=== PATIENT | male | born 1980 | race Caucasian/White ===

== ENCOUNTER 2016-07-25 07:01 | Emergency (ER) | payer OTHER ==
[~2016-07-25 07:01] MED LIST: PROZ40CA PO
[2016-07-25] MEDS ORDERED: METOCLOPRAMIDE INJ 10MG/2ML VIAL (J2765) As Ordered ONE (07:59)
[2016-07-25] MEDS ORDERED: diphenhydrAMINE INJ 50MG/ML VIAL (J1200) As Ordered ONE (08:00)
[2016-07-25 08:06] LABS: BASO # 0.2 K/mm3 (0.0-0.2); BASO % 1.4 % (0.0-1.0); EOS # 0.4 K/mm3 (0.0-0.50); LARGE UNSTAINED CELL # 0.2 K/mm3 (0.0-0.4); LARGE UNSTAINED CELL % 1.3 % (0.0-4.0); LYMPH % 24.8 % (24.0-44.0); MEAN CORPUSCULAR HEMOGLOBIN 30.8 pg (27.0-33.0); MEAN CORPUSCULAR HGB CONC 33.7 g/dl (32.0-36.5); MEAN CORPUSCULAR VOLUME 91.4 fl (80.0-96.0); MONO # 0.7 K/mm3 (0.0-0.8); MONO % 5.6 % (0.0-5.0); NEUTROPHILS # 7.5 K/mm3 (1.8-7.7); PLATELET COUNT, AUTOMATED 212 k/mm3 (150-450); RED CELL DISTRIBUTION WIDTH 13.8 % (11.5-14.5); WHITE BLOOD COUNT 11.7 K/mm3 (4.0-10.0)
[2016-07-25 08:16] LABS: ALBUMIN 4.1 GM/DL (3.2-5.2); ALBUMIN/GLOBULIN RATIO 0.95 (1.00-1.93); ALKALINE PHOSPHATASE 122 U/L (45-117); ALT/SGPT 253 U/L (12-78); ANION GAP 10 MEQ/L (8-16); AST/SGOT 123 U/L (15-37); BILIRUBIN,TOTAL 0.4 MG/DL (0.2-1.0); BLOOD UREA NITROGEN 16 MG/DL (7-18); CALCIUM LEVEL 8.9 MG/DL (8.5-10.1); CARBON DIOXIDE LEVEL 22 MEQ/L (21-32); CHLORIDE LEVEL 107 MEQ/L (98-107); CREATININE FOR GFR 1.16 MG/DL (0.70-1.30); GLOMERULAR FILTRATION RATE > 60.0 (>60); GLUCOSE, FASTING 99 MG/DL (70-105); POTASSIUM SERUM 4.1 MEQ/L (3.5-5.1); SODIUM LEVEL 139 MEQ/L (136-145); TOTAL PROTEIN 8.4 GM/DL (6.4-8.2)
--- NOTE | 2016-07-25 08:16 | ECGEPIP ---
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
--- NOTE | 2016-07-25 09:59 | EDDOCDS ---
Physician Documentation [facility] Name: Marcus Arce Age: 36 yrs Sex: Male : 1980 Arrival Date: 07/25/2016 Time: 07:01 Bed 9 Private MD: Isaac John PA-C Disposition: 07/25/16 09:28 Discharged to Home/Self Care. Impression: Acute frontal sinusitis, Elevated blood-pressure reading, without diagnosis of hypertension, Other right bundle-branch block. - Condition is Stable. - Discharge Instructions: Hypertension, Sinus Headache, How to Take Your Blood Pressure, Brxr-gz-Ampl. - Prescriptions for azelastine 137 mcg (0.1 %) Nasal aerosol,spray - spray 2 spray by INTRANASAL route 2 times per day; 1 bottle. - Medication Reconciliation, Local Pharmacy Hours form. - Follow up: True Morales; When: Call to arrange an appointment; Reason: Further diagnostic work-up, Recheck today's complaints, Continuance of care. Follow up: Isaac John; When: 2 - 3 days; Reason: Further diagnostic work-up, Recheck today's complaints, Continuance of care. - Problem is new. - Symptoms have improved. Historical: - Allergies: no known allergies; - Home Meds: 1. Sertraline 150 mg nightly - PMHx: Anxiety; Depression; GERD; - PSHx: Knee surgery- Left; - Social history: Smoking status: Patient states was never smoker of tobacco. No barriers to communication noted, The patient speaks fluent Sami, Speaks appropriately for age. - Family history: Not pertinent. - : The pt / caregiver states he / she is not on anticoagulants. Home medication list is obtained from the patient. - Exposure Risk Screening:: None identified. Vital Signs: 07/25 07:07 BP 169 / 111; Pulse 64; Resp 16; Temp 97.3(T); Pulse Ox 95% on R/A; Weight 141.52 kg / bcj 312 lbs; Height 6 ft. 2 in. (187.96 cm); Pain 6/10; 07:35 BP 202 / 160 LA Sitting (man/lg); btw 08:01 Pulse 54 MON; Pulse Ox 94% ; jc4 08:02 BP 148 / 82 (auto/); jc4 08:17 BP 150 / 81 (auto/); jc4 08:17 Pulse 68 MON; Pulse Ox 94% ; jc4 08:31 Pulse 76 MON; Pulse Ox 97% ; jc4 08:32 BP 148 / 78 (auto/); jc4 08:41 Pain 4/10; jc4 09:50 BP 161 / 78; Pulse 58; Resp 20; Temp 97.3(O); Pulse Ox 98% on R/A; Pain 4/10; jc4 07:07 Body Mass Index 40.06 (141.52 kg, 187.96 cm) bcj 07:35 Blood pressure reading taken by me. btw MDM: 07:12 Recheck B/P ordered. btw 07:34 IV Saline Lock ordered. btw 07:34 Assembling Fabricator/Pulse Ox/q 30 min VS ordered. btw 07:34 Metoclopramide 20 mg IV at 80 mg/hr once over 15 mins ordered. btw 07:34 diphenhydrAMINE 50 mg IVP once ordered. btw 07:36 Chest, 2 View (pa\E\lat) Ordered. EDMS 07:36 CBC with Diff Ordered. EDMS 07:36 Complete Comphrensive Metabolic Ordered. EDMS 07:36 Cardiac Marker Panel Ordered. EDMS 07:36 Troponin Ordered. EDMS 07:43 ECG WITH READING ER PHYS+CARDIAG ordered. EDMS 08:23 Financial registration complete. lg 08:49 CBC with Diff Reviewed. btw 08:49 Complete Comphrensive Metabolic Reviewed. btw 08:49 Cardiac Marker Panel Reviewed. btw 08:49 EKG-ADULT Reviewed. btw Administered Medications: 08:08 Drug: diphenhydrAMINE 50 mg [diphenhydramine 50 mg/mL injection solution (1 mL)] Route: jc4 IVP; Site: right hand; 09:59 Follow up: Response: Pain is decreased jc4 08:14 Drug: Metoclopramide 20 mg [metoclopramide 5 mg/mL injection solution] Route: IV; Rate: jc4 80 mg/hr; Infused Over: 15 mins; Site: right hand; 08:41 Follow up: Pain 4/10 Adult; IV Status: Completed infusion jc4 Signatures: Dispatcher [employer] EDMS Eleuterio Cadena, RN RN bcImelda Polanco, Manny Reg lg WolfendJerry sampson PA PA btw Castle, Jennifer, RN RN jc4 Porsha Ritter RN RN mk4 MTDD
--- NOTE | 2016-07-25 09:59 | EDDOCDS ---
Nurse's Notes [facility] Name: Marcus Arce Age: 36 yrs Sex: Male : 1980 Arrival Date: 07/25/2016 Time: 07:01 Bed 9 Private MD: Isaac John PA-C Diagnosis: Acute frontal sinusitis;Elevated blood-pressure reading, without diagnosis of hypertension;Other right bundle-branch block Presentation: 07/25 07:04 Presenting complaint: Patient states: woke up this am with stabbing headache/right bcj sided facial and ear pain. + dizziness. had cold sx's last week. denies recent fall / head injury. This patient has no additional risk factors. Adult Sepsis Screening: The patient does not have new or worsening altered mentation. Patient's respiratory rate is less than 22. Systolic blood pressure is greater than 100. Patient has a qSOFA score of 0- Negative Sepsis Screen. Suicide/Homicide risk assessment- the patient denies having any suicidal and/or homicidal ideations and does not present with any other emotional, behavioral or mental health complaints. 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 Transition of care: patient was not received from another setting of care. 07:04 Acuity: BRAYAN Level 4 bcj 07:04 Method Of Arrival: Walkin/Carried/Asstd bcj Triage Assessment: 07:07 Headache History: This patient does not have a history of previous headaches. General: bcj Appears in no apparent distress, comfortable, Behavior is cooperative. Pain: Location: head Pain currently is 6 out of 10 on a pain scale. Pain began 4 hours ago Also complains of no other associated symptoms. HIV screening NA for this visit Offered previously. Neurological: Level of Consciousness is awake, alert. Historical: - Allergies: no known allergies; - Home Meds: 1. Sertraline 150 mg nightly - PMHx: Anxiety; Depression; GERD; - PSHx: Knee surgery- Left; - Social history: Smoking status: Patient states was never smoker of tobacco. No barriers to communication noted, The patient speaks fluent Liberian, Speaks appropriately for age. - Family history: Not pertinent. - : The pt / caregiver states he / she is not on anticoagulants. Home medication list is obtained from the patient. - Exposure Risk Screening:: None identified. Screenin:54 Screening information is obtained from the patient. Fall risk: No risks identified. mk4 Assistance ADL's: requires no assistance with activities of daily living. Abuse/DV Screen: The patient / caregiver reports he/she is: not in a situation that causes fear, pain or injury. Nutritional screening: No deficits noted. 08:09 home support is adequate. jc4 09:50 Advance Directives: There is no active DNR order. jc4 Assessment: 07:54 General: Appears in no apparent distress, pt transferred to room 9. mk4 08:09 General: Appears in no apparent distress, Behavior is cooperative, pleasant. Pain: jc4 Location: top of head, right ear, right anglican and right jaw Pain currently is 6 out of 10 on a pain scale. Neurological: Level of Consciousness is awake, alert, Oriented to person, place, time. Neurological: Reports photophobia. Cardiovascular: Rhythm is sinus bradycardia No ectopy. Respiratory: Airway is patent Respiratory effort is even, unlabored, Respiratory pattern is regular, symmetrical. GI: Denies nausea. Derm: Skin is pink, warm & dry. 08:41 General: Pt resting on stretcher. States that pain is presently "4/10" at this time. jc4 Color pink, skin warm and dry. Respirations easy and full. Appears comfortable. Denies nausea. Saline lock in place. Call rdz in reach. Lights dimmed for patient comfort. 09:58 General: Appears in no apparent distress, Behavior is cooperative, pleasant. Pain: Pain jc4 currently is 4 out of 10 on a pain scale. Neurological: Level of Consciousness is awake, alert, Oriented to person, place, time. Respiratory: Airway is patent Respiratory effort is even, unlabored, Respiratory pattern is regular, symmetrical. Derm: Skin is pink, warm & dry. Vital Signs: 07:07 BP 169 / 111; Pulse 64; Resp 16; Temp 97.3(T); Pulse Ox 95% on R/A; Weight 141.52 kg; bcj Height 6 ft. 2 in. (187.96 cm); Pain 6/10; 07:35 BP 202 / 160 LA Sitting (man/lg); btw 08:01 Pulse 54 MON; Pulse Ox 94% ; jc4 08:02 BP 148 / 82 (auto/); jc4 08:17 BP 150 / 81 (auto/); jc4 08:17 Pulse 68 MON; Pulse Ox 94% ; jc4 08:31 Pulse 76 MON; Pulse Ox 97% ; jc4 08:32 BP 148 / 78 (auto/); jc4 08:41 Pain 4/10; jc4 09:50 BP 161 / 78; Pulse 58; Resp 20; Temp 97.3(O); Pulse Ox 98% on R/A; Pain 4/10; jc4 07:07 Body Mass Index 40.06 (141.52 kg, 187.96 cm) j 07:35 Blood pressure reading taken by me. [facility] Vitals: 07:07 Log In Time: July 25, 2016 at 07:03. [facility] ED Course: 07:02 Patient visited by Sadia Roberson. lja 07:02 Isaac John is Private Physician. lja 07:02 Patient moved to Waiting lja 07:06 Triage Initiated bcj 07:10 Patient visited by Eleuterio Cadena RN. bcj 07:10 Patient moved to I2 / M2 bcj 07:33 Susu Sandoval PA is PHCP. btw 07:33 Sarah Triplett MD is Attending Physician. btw 07:33 Patient visited by Susu Sandoval PA. btw 07:42 Hamida Mcmillan RN is Primary Nurse. mk4 07:42 Patient moved to 9 mk4 07:53 Troponin Sent. mk4 07:53 Cardiac Marker Panel Sent. mk4 07:53 Complete Comphrensive Metabolic Sent. mk4 07:53 CBC with Diff Sent. mk4 07:53 EKG done. (by ED staff). Reviewed by Susu GUZMÁN. dem1 07:54 Patient visited by Rachel Kunz PCA. ct3 07:54 Patient has correct armband on for positive identification. Placed in gown. Bed in low ct3 position. Call light in reach. Side rails up X2. fbi profiler on. Pulse ox on. NIBP on. 07:54 Inserted saline lock: 20 gauge in right hand and blood collected. mk4 08:09 The patient / caregiver is instructed regarding the plan of care and ED course. jc4 08:36 EKG-ADULT Returned. EDMS 08:41 Patient visited by Hamida Mcmillan RN. jc4 09:27 True Morales is Referral Physician. btw 09:27 Isaac John is Referral Physician. btw 09:49 Discontinued lock intact, bleeding controlled, pressure dressing applied, No jc4 redness/swelling at site. No procedures done that require assistance. Administered Medications: 08:08 Drug: diphenhydrAMINE 50 mg [diphenhydramine 50 mg/mL injection solution (1 mL)] Route: jc4 IVP; Site: right hand; 09:59 Follow up: Response: Pain is decreased jc4 08:14 Drug: Metoclopramide 20 mg [metoclopramide 5 mg/mL injection solution] Route: IV; Rate: jc4 80 mg/hr; Infused Over: 15 mins; Site: right hand; 08:41 Follow up: Pain /10 Adult; IV Status: Completed infusion jc4 Order Results: Lab Order: CBC with Diff; SPEC'M 07/25/16 07:52 Test: WHITE BLOOD COUNT; Value: 11.7; Range: 4.0-10.0; Abnormal: Above high normal; Units: K/mm3; Status: F Test: RED BLOOD COUNT; Value: 5.87; Range: 4.30-6.10; Units: M/mm3; Status: F Test: HEMOGLOBIN; Value: 18.1; Range: 14.0-18.0; Abnormal: Above high normal; Units: g/dl; Status: F Test: HEMATOCRIT; Value: 53.7; Range: 42.0-52.0; Abnormal: Above high normal; Units: %; Status: F Test: MEAN CORPUSCULAR VOLUME; Value: 91.4; Range: 80.0-96.0; Units: fl; Status: F Test: MEAN CORPUSCULAR HEMOGLOBIN; Value: 30.8; Range: 27.0-33.0; Units: pg; Status: F Test: MEAN CORPUSCULAR HGB CONC; Value: 33.7; Range: 32.0-36.5; Units: g/dl; Status: F Test: RED CELL DISTRIBUTION WIDTH; Value: 13.8; Range: 11.5-14.5; Units: %; Status: F Test: PLATELET COUNT, AUTOMATED; Value: 212; Range: 150-450; Units: k/mm3; Status: F Test: NEUTROPHILS %; Value: 64.0; Range: 36.0-66.0; Units: %; Status: F Test: LYMPH %; Value: 24.8; Range: 24.0-44.0; Units: %; Status: F Test: MONO %; Value: 5.6; Range: 0.0-5.0; Abnormal: Above high normal; Units: %; Status: F Test: EOS %; Value: 3.0; Range: 0.0-3.0; Units: %; Status: F Test: BASO %; Value: 1.4; Range: 0.0-1.0; Abnormal: Above high normal; Units: %; Status: F Test: LARGE UNSTAINED CELL %; Value: 1.3; Range: 0.0-4.0; Units: %; Status: F Test: NEUTROPHILS #; Value: 7.5; Range: 1.8-7.7; Units: K/mm3; Status: F Test: LYMPH #; Value: 3.0; Range: 1.5-4.5; Units: K/mm3; Status: F Test: MONO #; Value: 0.7; Range: 0.0-0.8; Units: K/mm3; Status: F Test: EOS #; Value: 0.4; Range: 0.0-0.50; Units: K/mm3; Status: F Test: BASO #; Value: 0.2; Range: 0.0-0.2; Units: K/mm3; Status: F Test: LARGE UNSTAINED CELL #; Value: 0.2; Range: 0.0-0.4; Units: K/mm3; Status: F Lab Order: Complete Comphrensive Metabolic; SPEC'M 07/25/16 07:51 Test: GLUCOSE, FASTING; Value: 99; Range: 70-105; Units: MG/DL; Status: F Test: BLOOD UREA NITROGEN; Value: 16; Range: 7-18; Units: MG/DL; Status: F Test: CREATININE FOR GFR; Value: 1.16; Range: 0.70-1.30; Units: MG/DL; Status: F Test: GLOMERULAR FILTRATION RATE; Value: > 60.0; Range: >60; Status: F Test: SODIUM LEVEL; Value: 139; Range: 136-145; Units: MEQ/L; Status: F Test: POTASSIUM SERUM; Value: 4.1; Range: 3.5-5.1; Units: MEQ/L; Status: F Test: CHLORIDE LEVEL; Value: 107; Range: 98-107; Units: MEQ/L; Status: F Test: CARBON DIOXIDE LEVEL; Value: 22; Range: 21-32; Units: MEQ/L; Status: F Test: ANION GAP; Value: 10; Range: 8-16; Units: MEQ/L; Status: F Test: CALCIUM LEVEL; Value: 8.9; Range: 8.5-10.1; Units: MG/DL; Status: F Test: AST/SGOT; Value: 123; Range: 15-37; Abnormal: Above high normal; Units: U/L; Status: F Test: ALT/SGPT; Value: 253; Range: 12-78; Abnormal: Above high normal; Units: U/L; Status: F Test: ALKALINE PHOSPHATASE; Value: 122; Range: 45-117; Abnormal: Above high normal; Units: U/L; Status: F Test: BILIRUBIN,TOTAL; Value: 0.4; Range: 0.2-1.0; Units: MG/DL; Status: F Test: TOTAL PROTEIN; Value: 8.4; Range: 6.4-8.2; Abnormal: Above high normal; Units: GM/DL; Status: F Test: ALBUMIN; Value: 4.1; Range: 3.2-5.2; Units: GM/DL; Status: F Test: ALBUMIN/GLOBULIN RATIO; Value: 0.95; Range: 1.00-1.93; Abnormal: Below low normal; Status: F Test Note: ; Units are mL/min/1.73 m2 Chronic Kidney Disease Staging per NKF: Stage I & II GFR >=60 Normal to Mildly Decreased Stage III GFR 30-59 Moderately Decreased Stage IV GFR 15-29 Severely Decreased Stage V GFR <15 Very Little GFR Left ESRD GFR <15 on CLIMATE CHANGE RISK ASSESSOR Lab Order: Cardiac Marker Panel; SPEC'M 07/25/16 07:51 Test: CPK CREATINE PHOSPHOKINASE; Value: 335; Range: 39-308; Abnormal: Above high normal; Units: U/L; Status: F Test: CK-MB VALUE MASS; Value: 2.1; Range: 0.0-3.6; Units: NG/ML; Status: F Test: MB/CK RELATIVE INDEX; Value: 0.62; Range: < OR =4; Status: F Test: TROPONIN I; Value: 0.05; Range: < 0.10; Units: NG/ML; Status: F Test Note: ; DIAGNOSIS CRITERIA MMB ng/ml Relative Index (RI) NON-AMI < or = 5 N/A [place] ZONE > 5 < or = 4 AMI > 5 > 4 Radiology Order: EKG-ADULT Test: EKG-ADULT REASON FOR EXAMINATION: hypertension; Stationary ECG Study; [facility] - ED; ; Test Date: 2016-07-25; Pat Name: MARCUS ARCE Department:; Room: -; Gender: M 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 btw 09:50 Discharge Assessment: Patient awake, alert and oriented x 3. No cognitive and/or jc4 functional deficits noted. Patient verbalized understanding of disposition instructions. patient administered narcotics - no. The following High Risk Discharge criteria are identified: None. Discharged to home ambulatory, with 's grandmother. Condition: stable. Discharge instructions given to patient, Instructed on discharge instructions, follow up and referral plans. medication usage, Demonstrated understanding of instructions, medications, Pt was receptive of discharge instructions/ teaching. No special radiology studies were completed. Property :Personal belongings accompany Pt. 09:59 Patient left the ED. jc4 Signatures: Dispatcher [employer] EDMS Eleuterio Cadena, RN Susu Herr PA PA btw Hamida Mcmillan, RN RN jc4 Rachel Kunz PCA BRIDGE TOLL COLLECTOR ct3 Violeta Cook dem1 Porsha Ritter, RN RN mk4 Arel, Sadia rocha Corrections: (The following items were deleted from the chart) 07:57 07:53 EKG done. (by ED staff). Reviewed by Sarah Triplett MD ct3 dem1 MTDD
--- NOTE | 2016-07-25 15:04 | REP ---
CHEST, TWO VIEWS: COMPARISON: 11/11/2008. There is no evidence of acute infiltrate. No pleural effusion is seen. The heart is normal in size. The mediastinal silhouette is unremarkable. The visualized osseous structures are intact. IMPRESSION: No acute pulmonary disease. Unreviewed
--- NOTE | 2016-07-27 11:00 | EDDOCDS ---
Nurse's Notes [facility] Name: Marcus Arce Age: 36 yrs Sex: Male : 1980 Arrival Date: 07/25/2016 Time: 07:01 Bed 9 Private MD: Isaac John PA-C Diagnosis: Acute frontal sinusitis;Elevated blood-pressure reading, without diagnosis of hypertension;Other right bundle-branch block Presentation: 07/25 07:04 Presenting complaint: Patient states: woke up this am with stabbing headache/right bcj sided facial and ear pain. + dizziness. had cold sx's last week. denies recent fall / head injury. This patient has no additional risk factors. Adult Sepsis Screening: The patient does not have new or worsening altered mentation. Patient's respiratory rate is less than 22. Systolic blood pressure is greater than 100. Patient has a qSOFA score of 0- Negative Sepsis Screen. Suicide/Homicide risk assessment- the patient denies having any suicidal and/or homicidal ideations and does not present with any other emotional, behavioral or mental health complaints. 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 Transition of care: patient was not received from another setting of care. 07:04 Acuity: BRAYAN Level 4 bcj 07:04 Method Of Arrival: Walkin/Carried/Asstd bcj Triage Assessment: 07:07 Headache History: This patient does not have a history of previous headaches. General: bcj Appears in no apparent distress, comfortable, Behavior is cooperative. Pain: Location: head Pain currently is 6 out of 10 on a pain scale. Pain began 4 hours ago Also complains of no other associated symptoms. HIV screening NA for this visit Offered previously. Neurological: Level of Consciousness is awake, alert. Historical: - Allergies: no known allergies; - Home Meds: 1. Sertraline 150 mg nightly - PMHx: Anxiety; Depression; GERD; - PSHx: Knee surgery- Left; - Social history: Smoking status: Patient states was never smoker of tobacco. No barriers to communication noted, The patient speaks fluent Danish, Speaks appropriately for age. - Family history: Not pertinent. - : The pt / caregiver states he / she is not on anticoagulants. Home medication list is obtained from the patient. - Exposure Risk Screening:: None identified. Screenin:54 Screening information is obtained from the patient. Fall risk: No risks identified. mk4 Assistance ADL's: requires no assistance with activities of daily living. Abuse/DV Screen: The patient / caregiver reports he/she is: not in a situation that causes fear, pain or injury. Nutritional screening: No deficits noted. 08:09 home support is adequate. jc4 09:50 Advance Directives: There is no active DNR order. jc4 Assessment: 07:54 General: Appears in no apparent distress, pt transferred to room 9. mk4 08:09 General: Appears in no apparent distress, Behavior is cooperative, pleasant. Pain: jc4 Location: top of head, right ear, right buddhism and right jaw Pain currently is 6 out of 10 on a pain scale. Neurological: Level of Consciousness is awake, alert, Oriented to person, place, time. Neurological: Reports photophobia. Cardiovascular: Rhythm is sinus bradycardia No ectopy. Respiratory: Airway is patent Respiratory effort is even, unlabored, Respiratory pattern is regular, symmetrical. GI: Denies nausea. Derm: Skin is pink, warm & dry. 08:41 General: Pt resting on stretcher. States that pain is presently "4/10" at this time. jc4 Color pink, skin warm and dry. Respirations easy and full. Appears comfortable. Denies nausea. Saline lock in place. Call rdz in reach. Lights dimmed for patient comfort. 09:58 General: Appears in no apparent distress, Behavior is cooperative, pleasant. Pain: Pain jc4 currently is 4 out of 10 on a pain scale. Neurological: Level of Consciousness is awake, alert, Oriented to person, place, time. Respiratory: Airway is patent Respiratory effort is even, unlabored, Respiratory pattern is regular, symmetrical. Derm: Skin is pink, warm & dry. Vital Signs: 07:07 BP 169 / 111; Pulse 64; Resp 16; Temp 97.3(T); Pulse Ox 95% on R/A; Weight 141.52 kg; bcj Height 6 ft. 2 in. (187.96 cm); Pain 6/10; 07:35 BP 202 / 160 LA Sitting (man/lg); btw 08:01 Pulse 54 MON; Pulse Ox 94% ; jc4 08:02 BP 148 / 82 (auto/); jc4 08:17 BP 150 / 81 (auto/); jc4 08:17 Pulse 68 MON; Pulse Ox 94% ; jc4 08:31 Pulse 76 MON; Pulse Ox 97% ; jc4 08:32 BP 148 / 78 (auto/); jc4 08:41 Pain 4/10; jc4 09:50 BP 161 / 78; Pulse 58; Resp 20; Temp 97.3(O); Pulse Ox 98% on R/A; Pain 4/10; jc4 07:07 Body Mass Index 40.06 (141.52 kg, 187.96 cm) j 07:35 Blood pressure reading taken by me. [facility] Vitals: 07:07 Log In Time: July 25, 2016 at 07:03. [facility] ED Course: 07:02 Patient visited by Sadia Roberson. lja 07:02 Isaac John is Private Physician. lja 07:02 Patient moved to Waiting lja 07:06 Triage Initiated bcj 07:10 Patient visited by Eleuterio Cadena RN. bcj 07:10 Patient moved to I2 / M2 bcj 07:33 Susu Sanodval PA is PHCP. btw 07:33 Sarah Triplett MD is Attending Physician. btw 07:33 Patient visited by Susu Sandoval PA. btw 07:42 Hamida Mcmillan RN is Primary Nurse. mk4 07:42 Patient moved to 9 mk4 07:53 Troponin Sent. mk4 07:53 Cardiac Marker Panel Sent. mk4 07:53 Complete Comphrensive Metabolic Sent. mk4 07:53 CBC with Diff Sent. mk4 07:53 EKG done. (by ED staff). Reviewed by Susu GUZMÁN. dem1 07:54 Patient visited by Rachel Kunz PCA. ct3 07:54 Patient has correct armband on for positive identification. Placed in gown. Bed in low ct3 position. Call light in reach. Side rails up X2. supervisor water softener service on. Pulse ox on. NIBP on. 07:54 Inserted saline lock: 20 gauge in right hand and blood collected. mk4 08:09 The patient / caregiver is instructed regarding the plan of care and ED course. jc4 08:36 EKG-ADULT Returned. EDMS 08:41 Patient visited by Hamida Mcmillan RN. jc4 09:27 True Morales is Referral Physician. btw 09:27 Isaac John is Referral Physician. btw 09:49 Discontinued lock intact, bleeding controlled, pressure dressing applied, No jc4 redness/swelling at site. No procedures done that require assistance. 10:02 [facility] Payment Agreement was scanned into [employer] and attached to record. lg 12:37 T-Sheet-- Draft Copy was scanned into [employer] and attached to record. gb 12:38 ECG/EKG was scanned into [employer] and attached to record. gb 15:08 Chest, 2 View (pa\\E\\lat) Returned. EDMS Administered Medications: 08:08 Drug: diphenhydrAMINE 50 mg [diphenhydramine 50 mg/mL injection solution (1 mL)] Route: jc4 IVP; Site: right hand; 09:59 Follow up: Response: Pain is decreased jc4 08:14 Drug: Metoclopramide 20 mg [metoclopramide 5 mg/mL injection solution] Route: IV; Rate: jc4 80 mg/hr; Infused Over: 15 mins; Site: right hand; 08:41 Follow up: Pain 4/10 Adult; IV Status: Completed infusion jc4 Order Results: Lab Order: CBC with Diff; SPEC'M 07/25/16 07:52 Test: WHITE BLOOD COUNT; Value: 11.7; Range: 4.0-10.0; Abnormal: Above high normal; Units: K/mm3; Status: F Test: RED BLOOD COUNT; Value: 5.87; Range: 4.30-6.10; Units: M/mm3; Status: F Test: HEMOGLOBIN; Value: 18.1; Range: 14.0-18.0; Abnormal: Above high normal; Units: g/dl; Status: F Test: HEMATOCRIT; Value: 53.7; Range: 42.0-52.0; Abnormal: Above high normal; Units: %; Status: F Test: MEAN CORPUSCULAR VOLUME; Value: 91.4; Range: 80.0-96.0; Units: fl; Status: F Test: MEAN CORPUSCULAR HEMOGLOBIN; Value: 30.8; Range: 27.0-33.0; Units: pg; Status: F Test: MEAN CORPUSCULAR HGB CONC; Value: 33.7; Range: 32.0-36.5; Units: g/dl; Status: F Test: RED CELL DISTRIBUTION WIDTH; Value: 13.8; Range: 11.5-14.5; Units: %; Status: F Test: PLATELET COUNT, AUTOMATED; Value: 212; Range: 150-450; Units: k/mm3; Status: F Test: NEUTROPHILS %; Value: 64.0; Range: 36.0-66.0; Units: %; Status: F Test: LYMPH %; Value: 24.8; Range: 24.0-44.0; Units: %; Status: F Test: MONO %; Value: 5.6; Range: 0.0-5.0; Abnormal: Above high normal; Units: %; Status: F Test: EOS %; Value: 3.0; Range: 0.0-3.0; Units: %; Status: F Test: BASO %; Value: 1.4; Range: 0.0-1.0; Abnormal: Above high normal; Units: %; Status: F Test: LARGE UNSTAINED CELL %; Value: 1.3; Range: 0.0-4.0; Units: %; Status: F Test: NEUTROPHILS #; Value: 7.5; Range: 1.8-7.7; Units: K/mm3; Status: F Test: LYMPH #; Value: 3.0; Range: 1.5-4.5; Units: K/mm3; Status: F Test: MONO #; Value: 0.7; Range: 0.0-0.8; Units: K/mm3; Status: F Test: EOS #; Value: 0.4; Range: 0.0-0.50; Units: K/mm3; Status: F Test: BASO #; Value: 0.2; Range: 0.0-0.2; Units: K/mm3; Status: F Test: LARGE UNSTAINED CELL #; Value: 0.2; Range: 0.0-0.4; Units: K/mm3; Status: F Lab Order: Complete Comphrensive Metabolic; SPEC'M 07/25/16 07:51 Test: GLUCOSE, FASTING; Value: 99; Range: 70-105; Units: MG/DL; Status: F Test: BLOOD UREA NITROGEN; Value: 16; Range: 7-18; Units: MG/DL; Status: F Test: CREATININE FOR GFR; Value: 1.16; Range: 0.70-1.30; Units: MG/DL; Status: F Test: GLOMERULAR FILTRATION RATE; Value: > 60.0; Range: >60; Status: F Test: SODIUM LEVEL; Value: 139; Range: 136-145; Units: MEQ/L; Status: F Test: POTASSIUM SERUM; Value: 4.1; Range: 3.5-5.1; Units: MEQ/L; Status: F Test: CHLORIDE LEVEL; Value: 107; Range: 98-107; Units: MEQ/L; Status: F Test: CARBON DIOXIDE LEVEL; Value: 22; Range: 21-32; Units: MEQ/L; Status: F Test: ANION GAP; Value: 10; Range: 8-16; Units: MEQ/L; Status: F Test: CALCIUM LEVEL; Value: 8.9; Range: 8.5-10.1; Units: MG/DL; Status: F Test: AST/SGOT; Value: 123; Range: 15-37; Abnormal: Above high normal; Units: U/L; Status: F Test: ALT/SGPT; Value: 253; Range: 12-78; Abnormal: Above high normal; Units: U/L; Status: F Test: ALKALINE PHOSPHATASE; Value: 122; Range: 45-117; Abnormal: Above high normal; Units: U/L; Status: F Test: BILIRUBIN,TOTAL; Value: 0.4; Range: 0.2-1.0; Units: MG/DL; Status: F Test: TOTAL PROTEIN; Value: 8.4; Range: 6.4-8.2; Abnormal: Above high normal; Units: GM/DL; Status: F Test: ALBUMIN; Value: 4.1; Range: 3.2-5.2; Units: GM/DL; Status: F Test: ALBUMIN/GLOBULIN RATIO; Value: 0.95; Range: 1.00-1.93; Abnormal: Below low normal; Status: F Test Note: ; Units are mL/min/1.73 m2 Chronic Kidney Disease Staging per NKF: Stage I & II GFR >=60 Normal to Mildly Decreased Stage III GFR 30-59 Moderately Decreased Stage IV GFR 15-29 Severely Decreased Stage V GFR <15 Very Little GFR Left ESRD GFR <15 on AMMONIUM NITRATE CRYSTALLIZER Lab Order: Cardiac Marker Panel; SPEC'M 07/25/16 07:51 Test: CPK CREATINE PHOSPHOKINASE; Value: 335; Range: 39-308; Abnormal: Above high normal; Units: U/L; Status: F Test: CK-MB VALUE MASS; Value: 2.1; Range: 0.0-3.6; Units: NG/ML; Status: F Test: MB/CK RELATIVE INDEX; Value: 0.62; Range: < OR =4; Status: F Test: TROPONIN I; Value: 0.05; Range: < 0.10; Units: NG/ML; Status: F Test Note: ; DIAGNOSIS CRITERIA MMB ng/ml Relative Index (RI) NON-AMI < or = 5 N/A [place] > 5 < or = 4 AMI > 5 > 4 Radiology Order: Chest, 2 View (pa\\E\\lat) Test: Chest, 2 View (pa\\E\\lat) REASON FOR EXAMINATION: Cough; CHEST, TWO VIEWS:; ; COMPARISON: 11/11/2008.; ; There is no evidence of acute infiltrate.; ; No pleural effusion is seen.; ; The heart is normal in size.; ; The mediastinal silhouette is unremarkable.; ; The visualized osseous structures are intact.; ; IMPRESSION:; ; No acute pulmonary disease.; ; ; ; ; ; Unreviewed; Radiology Order: EKG-ADULT Test: EKG-ADULT REASON FOR EXAMINATION: hypertension; Stationary ECG Study; [facility] - ED; ; Test Date: 2016-07-25; Pat Name: MARCUS ARCE Department:; Room: -; 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 bt 09:50 Discharge Assessment: Patient awake, alert and oriented x 3. No cognitive and/or jc4 functional deficits noted. Patient verbalized understanding of disposition instructions. patient administered narcotics - no. The following High Risk Discharge criteria are identified: None. Discharged to home ambulatory, with 's grandmother. Condition: stable. Discharge instructions given to patient, Instructed on discharge instructions, follow up and referral plans. medication usage, Demonstrated understanding of instructions, medications, Pt was receptive of discharge instructions/ teaching. No special radiology studies were completed. Property :Personal belongings accompany Pt. 09:59 Patient left the ED. jc4 Signatures: Dispatcher [employer] EDMS Eleuterio Cadena, RN RN Mindy Villagran, Reg Reg gb Imelda Gonzales, Reg Reg lg Susu Sandoval, RAMIREZ PA btw Hamida Mcmillan, RN RN jc4 Rachel Kunz, AUDIOLOGY DIRECTOR AUDIOLOGY DIRECTOR ct3 Violeta Cook dem1 Porsha Ritter, RN RN mk4 Karol, Sadia rocha Corrections: (The following items were deleted from the chart) 07:57 07:53 EKG done. (by ED staff). Reviewed by Sarah Triplett MD ct3 dem1 Chart Complete MTDD
--- NOTE | 2016-07-27 11:00 | EDDOCDS ---
Physician Documentation [facility] Name: Marcus Arce Age: 36 yrs Sex: Male : 1980 Arrival Date: 07/25/2016 Time: 07:01 Bed 9 Private MD: Isaac John PA-C Disposition: 07/25/16 09:28 Discharged to Home/Self Care. Impression: Acute frontal sinusitis, Elevated blood-pressure reading, without diagnosis of hypertension, Other right bundle-branch block. - Condition is Stable. - Discharge Instructions: Hypertension, Sinus Headache, How to Take Your Blood Pressure, [id number]. - Prescriptions for azelastine 137 mcg (0.1 %) Nasal aerosol,spray - spray 2 spray by INTRANASAL route 2 times per day; 1 bottle. - Medication Reconciliation, Local Pharmacy Hours form. - Follow up: True Morales; When: Call to arrange an appointment; Reason: Further diagnostic work-up, Recheck today's complaints, Continuance of care. Follow up: Isaac John; When: 2 - 3 days; Reason: Further diagnostic work-up, Recheck today's complaints, Continuance of care. - Problem is new. - Symptoms have improved. Historical: - Allergies: no known allergies; - Home Meds: 1. Sertraline 150 mg nightly - PMHx: Anxiety; Depression; GERD; - PSHx: Knee surgery- Left; - Social history: Smoking status: Patient states was never smoker of tobacco. No barriers to communication noted, The patient speaks fluent Italian, Speaks appropriately for age. - Family history: Not pertinent. - : The pt / caregiver states he / she is not on anticoagulants. Home medication list is obtained from the patient. - Exposure Risk Screening:: None identified. Vital Signs: 07/25 07:07 BP 169 / 111; Pulse 64; Resp 16; Temp 97.3(T); Pulse Ox 95% on R/A; Weight 141.52 kg / bcj 312 lbs; Height 6 ft. 2 in. (187.96 cm); Pain 6/10; 07:35 BP 202 / 160 LA Sitting (man/lg); btw 08:01 Pulse 54 MON; Pulse Ox 94% ; jc4 08:02 BP 148 / 82 (auto/); jc4 08:17 BP 150 / 81 (auto/); jc4 08:17 Pulse 68 MON; Pulse Ox 94% ; jc4 08:31 Pulse 76 MON; Pulse Ox 97% ; jc4 08:32 BP 148 / 78 (auto/); jc4 08:41 Pain 4/10; jc4 09:50 BP 161 / 78; Pulse 58; Resp 20; Temp 97.3(O); Pulse Ox 98% on R/A; Pain 4/10; jc4 07:07 Body Mass Index 40.06 (141.52 kg, 187.96 cm) bcj 07:35 Blood pressure reading taken by me. btw MDM: 07:12 Recheck B/P ordered. btw 07:34 IV Saline Lock ordered. btw 07:34 Social Media Executive/Pulse Ox/q 30 min VS ordered. btw 07:34 Metoclopramide 20 mg IV at 80 mg/hr once over 15 mins ordered. btw 07:34 diphenhydrAMINE 50 mg IVP once ordered. btw 07:36 Chest, 2 View (pa\E\lat) Ordered. EDMS 07:36 CBC with Diff Ordered. EDMS 07:36 Complete Comphrensive Metabolic Ordered. EDMS 07:36 Cardiac Marker Panel Ordered. EDMS 07:36 Troponin Ordered. EDMS 07:43 ECG WITH READING ER PHYS+CARDIAG ordered. EDMS 08:23 Financial registration complete. lg 08:49 CBC with Diff Reviewed. btw 08:49 Complete Comphrensive Metabolic Reviewed. btw 08:49 Cardiac Marker Panel Reviewed. btw 08:49 EKG-ADULT Reviewed. btw 10:02 [facility] Payment Agreement was scanned into [employer] and attached to record. lg 12:37 T-Sheet-- Draft Copy was scanned into [employer] and attached to record. gb 12:38 ECG/EKG was scanned into [employer] and attached to record. gb Administered Medications: 08:08 Drug: diphenhydrAMINE 50 mg [diphenhydramine 50 mg/mL injection solution (1 mL)] Route: jc4 IVP; Site: right hand; 09:59 Follow up: Response: Pain is decreased jc4 08:14 Drug: Metoclopramide 20 mg [metoclopramide 5 mg/mL injection solution] Route: IV; Rate: jc4 80 mg/hr; Infused Over: 15 mins; Site: right hand; 08:41 Follow up: Pain 10/30 Adult; IV Status: Completed infusion jc4 Signatures: Dispatcher [employer] EDEleuterio Kahn, RN RN Mindy Villagran, Reg Reg gb Imelda Gonzales, Reg Reg lg Jerry Sandoval PA PA btw Castle, Jennifer RN RN jc4 Porsha Ritter RN RN mk4 The chart was reviewed and I authenticate all verbal orders and agree with the evaluation and treatment provided.Attachments: 10:02 [facility] Payment Agreement lg 12:37 T-Sheet-- Draft Copy gb 12:38 ECG/EKG gb Chart Complete MTDD
--- NOTE | 2016-07-27 11:00 | EDDOCDS ---
Physician Documentation [facility] Name: Marcus Arce Age: 36 yrs Sex: Male : 1980 Arrival Date: 07/25/2016 Time: 07:01 Bed 9 Private MD: Isaac John PA-C Disposition: 07/25/16 09:28 Discharged to Home/Self Care. Impression: Acute frontal sinusitis, Elevated blood-pressure reading, without diagnosis of hypertension, Other right bundle-branch block. - Condition is Stable. - Discharge Instructions: Hypertension, Sinus Headache, How to Take Your Blood Pressure, [id number]. - Prescriptions for azelastine 137 mcg (0.1 %) Nasal aerosol,spray - spray 2 spray by INTRANASAL route 2 times per day; 1 bottle. - Medication Reconciliation, Local Pharmacy Hours form. - Follow up: True Morales; When: Call to arrange an appointment; Reason: Further diagnostic work-up, Recheck today's complaints, Continuance of care. Follow up: Isaac John; When: 2 - 3 days; Reason: Further diagnostic work-up, Recheck today's complaints, Continuance of care. - Problem is new. - Symptoms have improved. Historical: - Allergies: no known allergies; - Home Meds: 1. Sertraline 150 mg nightly - PMHx: Anxiety; Depression; GERD; - PSHx: Knee surgery- Left; - Social history: Smoking status: Patient states was never smoker of tobacco. No barriers to communication noted, The patient speaks fluent Ukrainian, Speaks appropriately for age. - Family history: Not pertinent. - : The pt / caregiver states he / she is not on anticoagulants. Home medication list is obtained from the patient. - Exposure Risk Screening:: None identified. Vital Signs: 07/25 07:07 BP 169 / 111; Pulse 64; Resp 16; Temp 97.3(T); Pulse Ox 95% on R/A; Weight 141.52 kg / bcj 312 lbs; Height 6 ft. 2 in. (187.96 cm); Pain 6/10; 07:35 BP 202 / 160 LA Sitting (man/lg); btw 08:01 Pulse 54 MON; Pulse Ox 94% ; jc4 08:02 BP 148 / 82 (auto/); jc4 08:17 BP 150 / 81 (auto/); jc4 08:17 Pulse 68 MON; Pulse Ox 94% ; jc4 08:31 Pulse 76 MON; Pulse Ox 97% ; jc4 08:32 BP 148 / 78 (auto/); jc4 08:41 Pain 4/10; jc4 09:50 BP 161 / 78; Pulse 58; Resp 20; Temp 97.3(O); Pulse Ox 98% on R/A; Pain 4/10; jc4 07:07 Body Mass Index 40.06 (141.52 kg, 187.96 cm) bcj 07:35 Blood pressure reading taken by me. btw MDM: 07:12 Recheck B/P ordered. btw 07:34 IV Saline Lock ordered. btw 07:34 Bee Breeder/Pulse Ox/q 30 min VS ordered. btw 07:34 Metoclopramide 20 mg IV at 80 mg/hr once over 15 mins ordered. btw 07:34 diphenhydrAMINE 50 mg IVP once ordered. btw 07:36 Chest, 2 View (pa\E\lat) Ordered. EDMS 07:36 CBC with Diff Ordered. EDMS 07:36 Complete Comphrensive Metabolic Ordered. EDMS 07:36 Cardiac Marker Panel Ordered. EDMS 07:36 Troponin Ordered. EDMS 07:43 ECG WITH READING ER PHYS+CARDIAG ordered. EDMS 08:23 Financial registration complete. lg 08:49 CBC with Diff Reviewed. btw 08:49 Complete Comphrensive Metabolic Reviewed. btw 08:49 Cardiac Marker Panel Reviewed. btw 08:49 EKG-ADULT Reviewed. btw 10:02 [facility] Payment Agreement was scanned into [employer] and attached to record. lg 12:37 T-Sheet-- Draft Copy was scanned into [employer] and attached to record. gb 12:38 ECG/EKG was scanned into [employer] and attached to record. gb Administered Medications: 08:08 Drug: diphenhydrAMINE 50 mg [diphenhydramine 50 mg/mL injection solution (1 mL)] Route: jc4 IVP; Site: right hand; 09:59 Follow up: Response: Pain is decreased jc4 08:14 Drug: Metoclopramide 20 mg [metoclopramide 5 mg/mL injection solution] Route: IV; Rate: jc4 80 mg/hr; Infused Over: 15 mins; Site: right hand; 08:41 Follow up: Pain 10/30 Adult; IV Status: Completed infusion jc4 Signatures: Dispatcher [employer] EDEleuterio Kahn, RN RN Mindy Villagran, Reg Reg gb Imelda Gonzales, Reg Reg lg Jerry Sandoval PA PA btw Castle, Jennifer RN RN jc4 Porsha Ritter RN RN mk4 The chart was reviewed and I authenticate all verbal orders and agree with the evaluation and treatment provided.Attachments: 10:02 [facility] Payment Agreement lg 12:37 T-Sheet-- Draft Copy gb 12:38 ECG/EKG gb Chart Complete MTDD
== END 2016-07-25 09:59 | disposition home or self-care (01) ==
LOC: M ED 07:01
DX: J01.10 Acute frontal sinusitis, unspecified (principal); I10 Essential (primary) hypertension; F32.9 Major depressive disorder, single episode, unspecified; F41.9 Anxiety disorder, unspecified; K21.9 Gastro-esophageal reflux disease without esophagitis; Z79.899 Other long term (current) drug therapy
CPT/HCPCS: 36415; 71020; 80053; 82550; 82553; 84484; 85025; 93005; 93041; 96365; 96375; 99284; J1200; J2765

== ENCOUNTER 2016-10-04 08:18 | Emergency (ER) | payer OTHER ==
[~2016-10-04] VITALS: Ht 188 cm; Wt 140.6 kg
[2016-10-04] MEDS ORDERED: ZOLO100T PO (08:28)
--- NOTE | 2016-10-04 09:17 | REP ---
REASON: Pain after twisting injury. COMPARISON: None. There is a cancellous screw in the proximal tibia from previous operative procedure. There is no evidence of an acute fracture or destructive osseous lesion. Signed by Sherman Berg DO 10/04/2016 09:24 A
[2016-10-04 10:00] VITALS: BP 127/67
== END 2016-10-04 10:10 | disposition home or self-care (01) ==
LOC: M ED 09:43
DX: M25.562 Pain in left knee (principal)

== ENCOUNTER → 2021-06-23 | Outpatient (REF) | payer OTHER ==
[~2021-06-23] MED LIST changes: +ZOLO100T PO
[2021-06-23 13:56] LABS: HEMATOCRIT 54.3 % (42.0-52.0); HEMOGLOBIN 17.8 g/dl (13.5-17.5); MEAN CORPUSCULAR HEMOGLOBIN 30.4 pg (27.0-33.0); MEAN CORPUSCULAR HGB CONC 32.8 g/dl (32.0-36.5); MEAN CORPUSCULAR VOLUME 92.7 fl (80.0-96.0); PLATELET COUNT, AUTOMATED 198 10^3/uL (150-450); RED BLOOD COUNT 5.86 10^6/uL (4.30-6.10); WHITE BLOOD COUNT 10.3 10^3/uL (4.0-10.0)
[2021-06-23 14:22] LABS: HEMOGLOBIN A1c 5.3 %
[2021-06-23 14:36] LABS: ALBUMIN 4.3 GM/DL (3.2-5.2); ALT/SGPT 81 U/L (12-78); BILIRUBIN,TOTAL 0.5 MG/DL (0.2-1.0); BLOOD UREA NITROGEN 13 MG/DL (7-18); CALCIUM LEVEL 8.9 MG/DL (8.5-10.1); CARBON DIOXIDE LEVEL 26 MEQ/L (21-32); CHLORIDE LEVEL 104 MEQ/L (98-107); CHOLESTEROL LEVEL 158 MG/DL (<200); CREATININE FOR GFR 1.09 MG/DL (0.70-1.30); GLOMERULAR FILTRATION RATE > 60.0 (>60); GLUCOSE, FASTING 82 MG/DL (70-100); HDL CHOLESTEROL 37 MG/DL (>40); LDL CHOLESTEROL 100 MG/DL (<100); NON-HDL-C 121 MG/DL; POTASSIUM SERUM 4.5 MEQ/L (3.5-5.1); SODIUM LEVEL 138 MEQ/L (136-145); THYROID STIMULATING HORMONE 0.745 uIU/ML (0.358-3.740); TOTAL PROTEIN 8.4 GM/DL (6.4-8.2); TRIGLYCERIDES LEVEL 106 MG/DL (<150)
[2021-06-23 14:40] LABS: TOTAL 25(OH) VITAMIN D 22.6 NG/ML (30.0-100.0)
[2021-06-23 14:41] LABS: VITAMIN B12 LEVEL 323 PG/ML
[2021-06-23 14:43] LABS: FOLATE 9.3 NG/ML
[2021-06-23 14:52] LABS: APPEARANCE, URINE CLEAR (CLEAR); BACTERIA, URINE AUTO NEGATIVE (NEGATIVE); BILIRUBIN, URINE AUTO NEGATIVE (NEGATIVE); BLOOD, URINE BLOOD NEGATIVE (NEGATIVE); COLOR, URINE YELLOW (YELLOW); GLUCOSE, URINE (UA) AUTO NEGATIVE (NEGATIVE); KETONE, URINE AUTO NEGATIVE (NEGATIVE); LEUKOCYTE ESTERASE, URINE AUTO NEGATIVE (NEGATIVE); NITRITE, URINE AUTO NEGATIVE (NEGATIVE); PROTEIN, URINE AUTO NEGATIVE (NEGATIVE); RBC, URINE AUTO 0 /HPF (0-3); SPECIFIC GRAVITY URINE AUTO 1.013 (1.002-1.035); SQUAMOUS EPITHELIAL CELL UR AU 0 /HPF (0-6); UROBILINOGEN, URINE AUTO 0.2 mg/dL (0.0-2.0); WBC, URINE AUTO 0 /HPF (0-3)
== END ==
LOC: M PLALAB 10:02 → EDSTATUS 06-30 11:07 → M PLALAB 06-30 11:08
DX: K21.9 Gastro-esophageal reflux disease without esophagitis (principal); E66.9 Obesity, unspecified; R73.01 Impaired fasting glucose; E55.9 Vitamin D deficiency, unspecified; Z79.899 Other long term (current) drug therapy

== ENCOUNTER → 2021-12-15 | Outpatient (REF) | payer OTHER ==
[2021-12-15 14:05] LABS: ALBUMIN 3.9 GM/DL (3.2-5.2); ALT/SGPT 88 U/L (12-78); BILIRUBIN,TOTAL 0.4 MG/DL (0.2-1.0); BLOOD UREA NITROGEN 11 MG/DL (7-18); CALCIUM LEVEL 9.1 MG/DL (8.5-10.1); CARBON DIOXIDE LEVEL 30 MEQ/L (21-32); CHLORIDE LEVEL 105 MEQ/L (98-107); CREATININE FOR GFR 1.17 MG/DL (0.70-1.30); GLOMERULAR FILTRATION RATE > 60.0 (>60); GLUCOSE, FASTING 90 MG/DL (70-100); POTASSIUM SERUM 4.2 MEQ/L (3.5-5.1); SODIUM LEVEL 139 MEQ/L (136-145); TOTAL PROTEIN 7.4 GM/DL (6.4-8.2)
[2021-12-15 14:35] LABS: HEPATITIS C VIRUS ABY INDEX 0.1 INDEX (<0.8)
[2021-12-15 14:36] LABS: HIV 1&2 SCREEN CENTAUR NEGATIVE (NEGATIVE)
== END ==
LOC: M LABDRWAD 12:37
PROVIDERS: ATTEND Nurse Practitioner Family
DX: R74.01 Elevation of levels of liver transaminase levels (principal); Z11.9 Encounter for screening for infectious and parasitic diseases, unspecified

== ENCOUNTER 2022-12-29 15:48 | Emergency (ER) | payer OTHER ==
[~2022-12-29] VITALS: Ht 188 cm; Wt 154.8 kg
[2022-12-29] MEDS ORDERED: RABIES VACCINE HUMAN 2.5 INTERNATIONAL UNITS/ML VIAL IM ONE (19:00)
[2022-12-29] MEDS ORDERED: RABIES IMMUNE GLOBULIN 1500 INTERNATIONAL UNIT/5ML VIAL IM.IMMUN ONE ×2 (19:00→19:05)
[2022-12-29] MEDS ORDERED: RABIES IMMUNE GLOBULIN 300 INTERNATIONAL UNITS/1ML VIAL IM.IMMUN ONE (19:05)
[2022-12-29 19:59] VITALS: BP 180/120; TEMP 97.1; O2SAT 98
== END 2022-12-29 19:58 | disposition home or self-care (01) ==
LOC: M ED 15:48
DX: Z29.14 Encounter for prophylactic rabies immune globulin (principal); F32.A Depression, unspecified; Z79.52 Long term (current) use of systemic steroids

== ENCOUNTER 2023-01-01 08:07 | Emergency (ER) | payer OTHER ==
[~2023-01-01] VITALS: Ht 188 cm; Wt 154.2 kg
[2023-01-01] MEDS ORDERED: RABIES VACCINE HUMAN 2.5 INTERNATIONAL UNITS/ML VIAL IM ONE (08:55)
[2023-01-01 09:33] VITALS: BP 170/110; TEMP 97; O2SAT 97
== END 2023-01-01 11:19 | disposition home or self-care (01) ==
LOC: M ED 08:07
DX: Z29.14 Encounter for prophylactic rabies immune globulin (principal); Z79.52 Long term (current) use of systemic steroids

== ENCOUNTER 2023-01-05 07:42 | Emergency (ER) | payer OTHER ==
[~2023-01-05] VITALS: Ht 188 cm; Wt 155.0 kg
[2023-01-05 07:42] VITALS: BP 168/92; TEMP 97.5; O2SAT 97
[2023-01-05] MEDS ORDERED: RABIES VACCINE HUMAN 2.5 INTERNATIONAL UNITS/ML VIAL IM ONE (08:25)
[2023-01-05] MEDS ORDERED: LISI10TA22 PO (08:45)
== END 2023-01-05 08:54 | disposition home or self-care (01) ==
LOC: M ED 07:42
DX: Z29.14 Encounter for prophylactic rabies immune globulin (principal); I10 Essential (primary) hypertension; Z79.811 Long term (current) use of aromatase inhibitors; Z79.899 Other long term (current) drug therapy; Z23 Encounter for immunization

== ENCOUNTER 2023-01-12 08:26 | Emergency (ER) | payer OTHER ==
[~2023-01-12] VITALS: Ht 188 cm; Wt 156.0 kg
[~2023-01-12 08:26] MED LIST changes: +LISI10TA22 PO
[2023-01-12] MEDS ORDERED: RABIES VACCINE HUMAN 2.5 INTERNATIONAL UNITS/ML VIAL IM ONE (09:35)
[2023-01-12 09:57] VITALS: BP 174/108; TEMP 97.4; O2SAT 96
== END 2023-01-12 10:24 | disposition home or self-care (01) ==
LOC: M ED 08:26
DX: Z29.14 Encounter for prophylactic rabies immune globulin (principal); I10 Essential (primary) hypertension; Z79.811 Long term (current) use of aromatase inhibitors; Z79.899 Other long term (current) drug therapy; Z23 Encounter for immunization